=== PATIENT | female | born 1990 | race Caucasian/White ===

== ENCOUNTER 2016-07-22 13:37 | Emergency (ER) | payer OTHER ==
[2016-07-22 14:10] LABS: BASOPHIL 0.4 % (0-2); EOSINOPHIL 0.9 % (0-5); HCT 35.3 % (37.0-47.0); HGB 11.5 g/dl (12.5-16.0); LYMPHOCYTE 37.1 % (15-48); MCH 27.3 pg (25.0-31.0); MCHC 32.6 g/dL (32.0-36.0); MCV 83.6 fL (78.0-100.0); MPV 10.4 fL (6.0-9.5); NEUTROPHIL 52.6 % (41-80); PLT 285 K/uL (150-400); RBC 4.22 M/uL (4.20-5.40); RDW 13.5 % (11.5-14.0); WBC 5.7 K/uL (4.0-10.5)
[2016-07-22 14:40] LABS: ALBUMIN 4.7 g/dL (3.5-5.0); BILIRUBIN - TOTAL 0.4 mg/dL (0.1-1.0); CREATININE 0.7 mg/dL (0.5-1.0); GLOBULIN (CALCULATION) 2.5 g/dL (2.2-4.2); POTASSIUM 4.4 mmol/L (3.5-5.1); TOTAL PROTEIN 7.2 g/dL (6.4-8.3)
== END 2016-07-22 15:36 | disposition home or self-care (01) ==
LOC: FER 13:37
PROVIDERS: Internal Medicine
DX: S29.011A Strain of muscle and tendon of front wall of thorax, initial encounter (principal); I10 Essential (primary) hypertension; E03.9 Hypothyroidism, unspecified; K21.9 Gastro-esophageal reflux disease without esophagitis; F32.9 Major depressive disorder, single episode, unspecified; Z88.0 Allergy status to penicillin; Z79.899 Other long term (current) drug therapy
CPT/HCPCS: 36415; 71020; 80053; 84484; 85025; 85379; 93005; J1885

== ENCOUNTER 2021-04-05 18:28 | Emergency (ER) | payer OTHER ==
[~2021-04-05 18:28] MED LIST: ERYTHROMYCIN1 G1 OD; NORCO 5-325 TA1 EACH PO; [UNRECOGNIZED DRUG - OTHER] OD
== END 2021-04-05 20:40 | disposition home or self-care (01) ==
LOC: FER 18:28
DX: M79.651 Pain in right thigh (principal); Z86.16 Personal history of COVID-19; Z88.0 Allergy status to penicillin
CPT/HCPCS: 93971